=== PATIENT | male | born 1990 | race African-American/Black ===

== ENCOUNTER 2020-01-27 08:36 | Emergency (ER) | payer OTHER ==
[2020-01-27 08:44] VITALS: BP 143/85
--- NOTE | 2020-01-27 08:58 | ED Physician Documentation ---
PD HPI URI - Stated complaint Stated Complaint: SINUS SYMPTOMS - Chief complaint Chief Complaint: Heent - History obtained from History obtained from: Patient - History of Present Illness Timing - onset: How many days ago (4) Timing duration: Days (4) Timing details: Gradual onset Associated symptoms: Nasal congestion (with thicker drainage and some nosebleed with blowing.), Sinus pain. No: Fever, Chills, Sore throat, Dry cough, Dyspnea Contributing factors: No: Sick contact Similar symptoms before: Diagnosis (sinusitis in the past.) Review of Systems Constitutional: denies: Fever, Chills Ears: denies: Ear pain, Drainage/discharge Nose: reports: Rhinorrhea / runny nose, Congestion, Sinus pressure / pain Throat: denies: Sore throat Respiratory: denies: Cough Neurologic: reports: Headache (frontal) PD PAST MEDICAL HISTORY - Past Medical History Past Medical History: No - Present Medications Home Medications: Ambulatory Orders Medication Instructions Recorded Confirmed Doxycycline Monohydrate 150 mg PO BID #14 capsule 01/27/20 dexAMETHasone [Decadron] 4 mg PO DAILY #5 tablet 01/27/20 - Allergies Allergies/Adverse Reactions: Allergies Allergy/AdvReac Type Severity Reaction Status Date / Time No Known Drug Allergies Allergy Verified 01/27/20 08:45 PD ED PE NORMAL - Vitals Vital signs reviewed: Yes - General General: Alert and oriented X 3, No acute distress, Well developed/nourished - HEENT HEENT: Ears normal, Moist mucous membranes, Pharynx benign - Neck Neck: Supple, no meningeal sign, No adenopathy - Cardiac Cardiac: RRR, No murmur - Respiratory Respiratory: Clear bilaterally - Derm Derm: Normal color, Warm and dry, No rash - Neuro Neuro: Alert and oriented X 3, No motor deficit, Normal speech Results - Vitals Vitals: Vital Signs - 24 hr 01/27/20 08:41 Temperature 36.7 C Heart Rate 75 Respiratory 16 Rate Blood Pressure 143/85 H O2 Saturation 98 Oxygen O2 Source Room air PD MEDICAL DECISION MAKING - ED course Complexity details: considered differential, d/w patient Departure - Departure Disposition: 01 Home, Self Care Clinical Impression: Acute sinusitis Qualifiers: Sinusitis location: unspecified location Recurrence: recurrent Qualified Code(s): J01.91 - Acute recurrent sinusitis, unspecified Condition: Stable Record reviewed to determine appropriate education?: Yes Instructions: ED Sinusitis Abx Tx Follow-Up: [facility] [Provider Group] Prescriptions: dexAMETHasone [Decadron] 4 mg PO DAILY #5 tablet Doxycycline Monohydrate 150 mg PO BID #14 capsule Comments: For the next week you could increase your Claritin to twice daily and then resume once daily after that. Use Decadron oral steroid daily for the next 5 days to decrease inflammation through the sinuses. Doxycycline antibiotic twice daily for a week. Tylenol or ibuprofen as needed for fevers and pains. Recheck if not improving well over the next several days. Subsequently continue your Claritin daily and also could add just a basic saline nasal spray to cleanse the nasal passages once or twice daily. This should not staying like the steroid sprays but may help reduce the recurrence of sinus infections. Discharge Date/Time: 01/27/20 09:17
[2020-01-27] MEDS ORDERED: ACETAMINOPHEN 325 MG TABLET PO STA (09:08)
[2020-01-27] MEDS ORDERED: DOXYCYCLINE 100 MG TABLET PO STA (09:08)
[2020-01-27] MEDS ORDERED: DEXAMETHASONE 10 MG/ML VIAL PO STA (09:08)
[2020-01-27] MEDS ORDERED: CHERRY SYRUP 10 ML UDC PO ONE (09:08)
== END 2020-01-27 09:17 | disposition home or self-care (01) ==
LOC: ED 08:36
DX: J01.91 Acute recurrent sinusitis, unspecified (principal)
CPT/HCPCS: 99282; 99284; A9270

== ENCOUNTER 2020-02-02 01:47 | Emergency (ER) | payer OTHER ==
--- NOTE | 2020-02-02 02:10 | ED Physician Documentation ---
PD HPI HEENT - Stated complaint Stated Complaint: MITCHELL - Chief complaint Chief Complaint: Heent - History obtained from History obtained from: Patient - History of Present Illness Timing - onset: How many weeks ago (2) Timing - duration: Weeks (2) Timing - details: Gradual onset, Still present Location: Sinuses Improves: Medication Associated symptoms: Congestion, Rhinorrhea, Headache Similar symptoms before: Diagnosis (sinusitis) Recently seen: Emergency Dept - Additional information Additional information: 30-year-old male with a history of sinus problems has developed sinusitis again and he was seen here 1 week ago treated for sinusitis with Decadron and doxycycline and he has not had any improvement. He states the only time he felt any better was right when he left the emergency department. He states that he is having some difficulty with his eyes hurting some blurring of his vision and a frontal headache. He denies any cough or fever. He has had similar symptoms previously with sinusitis. Review of Systems Constitutional: reports: Myalgias, Fatigue. denies: Fever Eyes: reports: Decreased vision Ears: denies: Ear pain Nose: reports: Rhinorrhea / runny nose, Congestion, Sinus pressure / pain Throat: denies: Sore throat Cardiac: denies: Chest pain / pressure, Palpitations Respiratory: denies: Dyspnea, Cough GI: denies: Abdominal Pain, Nausea, Vomiting : denies: Dysuria, Frequency Skin: denies: Rash Musculoskeletal: denies: Neck pain, Back pain, Extremity pain Neurologic: reports: Headache. denies: Generalized weakness, Focal weakness, Numbness, Confused, Altered mental status, Head injury, LOC PD PAST MEDICAL HISTORY - Past Medical History Past Medical History: Yes Neuro: Headaches HEENT: Chronic sinusitis - Past Surgical History Past Surgical History: No - Present Medications Home Medications: Ambulatory Orders Medication Instructions Recorded Confirmed Doxycycline Monohydrate 150 mg PO BID #14 capsule 01/27/20 dexAMETHasone [Decadron] 4 mg PO DAILY #5 tablet 01/27/20 Amox/Clav 875/125 [Augmentin] 1 each PO Q12H #20 tablet 02/02/20 traMADol [Ultram] 50 - 100 mg PO Q6H PRN #20 tablet 02/02/20 - Allergies Allergies/Adverse Reactions: Allergies Allergy/AdvReac Type Severity Reaction Status Date / Time No Known Drug Allergies Allergy Verified 02/02/20 02:02 - Social History Does the pt smoke?: No Smoking Status: Never smoker Does the pt drink ETOH?: No Does the pt have substance abuse?: No - Immunizations Immunizations are current?: Yes - POLST Patient has POLST: No PD ED PE NORMAL - Vitals Vital signs reviewed: Yes (Hypertensive mild) - General General: Alert and oriented X 3, Well developed/nourished, Other (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 There is scleral injection present bilaterally) - Neck Neck: Supple, no meningeal sign, No bony TTP - Cardiac Cardiac: RRR, No murmur - Respiratory Respiratory: No respiratory distress, Clear bilaterally - Abdomen Abdomen: Normal bowel sounds, Soft, Non tender, Non distended, No organomegaly - Back Back: No CVA TTP, No spinal TTP - Derm Derm: Normal color, Warm and dry, No rash - Extremities Extremities: No deformity, No edema - Neuro Neuro: Alert and oriented X 3, manager internal 2-12 intact, No motor deficit, No sensory deficit, Normal speech Eye Opening: Spontaneous Motor: Obeys Commands Verbal: Oriented GCS Score: 15 - Psych Psych: Normal mood Results - Vitals Vitals: Vital Signs - 24 hr 02/02/20 02/02/20 02:00 02:02 Temperature 37.0 C 37 C Heart Rate 78 78 Respiratory 16 16 Rate Blood Pressure 148/83 H 148/83 H O2 Saturation 98 98 Oxygen O2 Source Room air - Labs Labs: Laboratory Tests 02/02/20 02:40 Nasal Adenovirus (PCR) NOT DETECTED Nasal B. parapertussis DNA (PCR) NOT DETECTED Nasal Coronavir 229E PCR NOT DETECTED Nasal Coronavir HKU1 PCR NOT DETECTED Nasal Coronavir NL63 PCR NOT DETECTED Nasal Coronavir OC43 PCR NOT DETECTED Nasal Enterovir/Rhinovir PCR NOT DETECTED Nasal Influenza B PCR NOT DETECTED Nasal Influenza A PCR NOT DETECTED Nasal Parainfluen 1 PCR NOT DETECTED Nasal Parainfluen 2 PCR NOT DETECTED Nasal Parainfluen 3 PCR NOT DETECTED Nasal Parainfluen 4 PCR NOT DETECTED Nasal RSV (PCR) NOT DETECTED Nasal B.pertussis DNA PCR NOT DETECTED Nasal C.pneumoniae (PCR) NOT DETECTED Nicholas Human Metapneumo PCR NOT DETECTED Nasal M.pneumoniae (PCR) NOT DETECTED Nasal SARS-CoV-2 (PCR) NOT DETECTED - Rads (name of study) CT head without Radiology: Prelim report reviewed (Impression: 1. No acute intracranial infarct or hemorrhage. 2 .Ethmoid and maxillary sinusitis.), EMP read indepedently, See rad report PD MEDICAL DECISION MAKING - ED course Complexity details: reviewed old records, reviewed results, re-evaluated patient, considered differential, d/w patient ED course: 30-year-old male with a prior history of sinusitis has been treated for sinusitis and he has not responded. He comes into the emergency department today with persistent symptoms and headache and on examination has left otitis and a CT scan of the head done demonstrates ethmoid and maxillary sinusitis. He is administered Rocephin 1 g IM and Toradol IM. Departure - Departure Disposition: 01 Home, Self Care Clinical Impression: Acute sinusitis Qualifiers: Sinusitis location: maxillary Recurrence: not specified as recurrent Qualified Code(s): J01.00 - Acute maxillary sinusitis, unspecified Otitis media Qualifiers: Otitis media type: suppurative Chronicity: acute Laterality: left Recurrence: not specified as recurrent Spontaneous tympanic membrane rupture: without spontaneous rupture Qualified Code(s): H66.002 - Acute suppurative otitis media without spontaneous rupture of ear drum, left ear Condition: Stable Instructions: ED Otitis Media Acute Adult, ED Headache Sinus, ED Sinusitis Abx Tx Follow-Up: [facility] [Provider Group] Prescriptions: Amox/Clav 875/125 [Augmentin] 1 each PO Q12H #20 tablet traMADol [Ultram] 50 - 100 mg PO Q6H PRN #20 tablet PRN Reason: Pain Forms: Activity restrictions
[2020-02-02] MEDS ORDERED: LIDOCAINE 1% 2 ML VIAL MC ONE (02:41)
[2020-02-02] MEDS ORDERED: cefTRIAXone 1 GM VIAL IM STA (02:41)
[2020-02-02] MEDS ORDERED: KETOROLAC 60 MG/2 ML VIAL IM STA (02:43)
[2020-02-02 03:29] LABS: C. PNEUMONIAE- RESP PCR PANEL NOT DETECTED
[2020-02-02 03:39] VITALS: BP 142/80
--- NOTE | 2020-02-02 07:32 | CT Report ---
PROCEDURE: HEAD WO INDICATIONS: severe frontal headache TECHNIQUE: Noncontrast 4.5 mm thick angled axial sections acquired from the foramen magnum to the vertex. For r adiation dose reduction, the following was used: automated exposure control, adjustment of mA and/or kV according to patient size. COMPARISON: None. FINDINGS: Image quality: Excellent. CSF spaces: Basal cisterns are patent. No extra-axial fluid collections. Ventricles are normal in size and shape. Brain: No midline shift. No intracranial masses or hemorrhage. Man-white matter interface is norm al. Skull and face: Calvarium and visualized facial bones are intact, without suspicious lesions. Sinuses: Bilateral maxillary sinus air-fluid levels. Right maxillary sinus mucosal thickening. Extens carlos incomplete ethmoid opacification with frothy material present in the ethmoids. Nasal septal devia tion. Cannot exclude nasal polyps. IMPRESSION: 1. Normal brain. No acute stroke, hemorrhage, or mass. 2. Bilateral ethmoid and maxillary sinusitis. 3. Is a septal deviation. 4. Cannot exclude nasal polyps. A preliminary report with the above findings was provided at the time of the study by [facility]. Reviewed by: Gee Salazar MD on 02/02/2020 7:30 AM PST Approved by: Gee Salazar MD on 02/02/2020 7:30 AM PST Station ID: [id number]
== END 2020-02-02 03:38 | disposition home or self-care (01) ==
LOC: ED 01:47
DX: J01.00 Acute maxillary sinusitis, unspecified (principal); H66.002 Acute suppurative otitis media without spontaneous rupture of ear drum, left ear; Z20.828 Contact with and (suspected) exposure to other viral communicable diseases
CPT/HCPCS: 0202U; 70450; 96372; 99284

== ENCOUNTER 2020-05-18 16:59 | Emergency (ER) | payer OTHER ==
--- NOTE | 2020-05-18 17:47 | ED Physician Documentation ---
History of Present Illness - Stated complaint Stated Complaint: INGROWN TOE-NAIL - Chief complaint Chief Complaint: Ext Problem - History obtained from History obtained from: Patient - History of Present Illness Timing: How many weeks ago (several) Pain level max: 3 Pain level now: 2 - Additonal information Additional information: Patient is a 30-year-old male who presents to the emergency department with recurrent ingrown toenails on the left great toe. Has had this removed several times. Has never seen a model and dye person. 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 No swelling or drainage. Review of Systems Constitutional: denies: Fever, Chills PD PAST MEDICAL HISTORY - Past Medical History Past Medical History: Yes Cardiovascular: None Respiratory: None Neuro: Headaches Endocrine/Autoimmune: None GI: None : None HEENT: Chronic sinusitis Psych: None Musculoskeletal: None Derm: None - Past Surgical History Past Surgical History: No - Present Medications Home Medications: Ambulatory Orders Medication Instructions Recorded Confirmed No Known Home Medications 05/18/20 05/18/20 - Allergies Allergies/Adverse Reactions: Allergies Allergy/AdvReac Type Severity Reaction Status Date / Time No Known Drug Allergies Allergy Verified 05/18/20 17:06 - Social History Does the pt smoke?: No Smoking Status: Never smoker Does the pt drink ETOH?: No Does the pt have substance abuse?: No - Immunizations Immunizations are current?: Yes - POLST Patient has POLST: No PD ED PE NORMAL - Vitals Vital signs reviewed: Yes - General General: Alert and oriented X 3, No acute distress - Derm Derm: Warm and dry - Extremities Extremities: Other (L foot, great toe - mild [place] toenail, medial aspect. no swelling or drainage.) - Neuro Neuro: Alert and oriented X 3 Results - Vitals Vitals: Vital Signs - 24 hr 05/18/20 05/18/20 17:07 17:54 Temperature 36.7 C 36.7 C Heart Rate 72 77 Respiratory 16 12 Rate Blood Pressure 137/81 H 126/80 O2 Saturation 97 98 Oxygen O2 Source Room air PD MEDICAL DECISION MAKING - ED course Complexity details: considered differential, d/w patient ED course: 30-year-old male, active duty [employer] with an ingrown left toenail. This is a recurrent issue for him. The toenail has been removed several times he states. We discussed partial toenail removal here versus following up with podiatry. Patient would rather follow-up with podiatry and discuss obliteration of the nail matrix to prevent regrowth. No active infection. Patient counseled regarding signs and symptoms for which I believe and urgent re-evaluation would be necessary. Patient with good understanding of and agreement to plan and is comfortable going home at this time This document was made in part using voice recognition software. While efforts are made to proofread this document, sound alike and grammatical errors may occur. Departure - Departure Disposition: 01 Home, Self Care Clinical Impression: Ingrown toenail Condition: Good Instructions: ED Ingrown Toenail No Infec Home Tx Follow-Up: [facility] [Provider Group] DRAKE MYRICK DPM [Physician No Access] - Haja Ambrosio DPM [Physician No Access] - JEFE STONE DPM [Physician No Access] - Brenden Cruz DPM [Physician No Access] - China Magana DPM [Provider Admit Priv/Credential] - Comments: You can utilize warm water soaks at home to help soften the toenail. As this has been removed multiple times and continues to recur, you should see a model and dye person who can obliterate the nail matrix to prevent regrowth. Follow-up w [facility] podiatry for further care. Discharge Date/Time: 05/18/20 18:00
[2020-05-18 17:55] VITALS: BP 126/80
== END 2020-05-18 18:00 | disposition home or self-care (01) ==
LOC: ED 16:59
DX: L60.0 Ingrowing nail (principal)
CPT/HCPCS: 99282; 99283